=== PATIENT | male | born 1975 | race African-American/Black ===

== ENCOUNTER 2017-02-12 08:26 | Emergency (ER) ==
--- NOTE | 2017-02-12 09:09 | PROVIDER DOCUMENTATION ---
HPI-Cardiac General - General Source: patient - History of Present Illness-Cardiac Quality of Pain: reports: none Severity in ED: mild Onset/Duration: other (3mo) Timing: intermittent Palpitation Quality: fast/pounding heart beat History of arrythmia: reports: none Nitro Today/Relief: reports: no nitro taken today Aspirin Treatment Today: reports: no aspirin today Associated Symptoms: reports: denies symptoms Similar Symptoms Previously?: Yes Recently Seen Here or By Another Healthcare Provider: No - General Chief Complaint: Palpitations Stated Complaint: B/P PROBLEMS Time Seen by Provider: 02/12/17 08:54 Allergies/Adverse Reactions: Patient Allergies Allergy/AdvReac Type Severity Reaction Status Date / Time No Known Allergies Allergy Verified 02/12/17 09:16 - History of Present Illness-Cardiac Nature of Presenting Problem: Presents to er with cc of palpitations x 3 months reports lasting in intervals of 5 minutes. Reports doesn't know how fast his heart rate gets during palpitations and denies sob,n,v,sob,cp,blurry vision. (Yaritza Roy) Review of Systems - Adult - REVIEW OF SYSTEMS - ADULT Constitutional: denies: chills, fever, fatique Eyes: reports: no symptoms reported Ears, Nose, Mouth & Throat: reports: no symptoms reported Cardiovascular: reports: palpitations. denies: chest pain, edema, irregular heart rate, orthopnea Respiratory: reports: no symptoms reported Gastrointestinal: denies: abdominal pain, diarrhea, nausea, vomiting Genitourinary: reports: no symptoms reported Musculoskeletal: reports: no symptoms reported Integumentary: reports: no symptoms reported Neurological: reports: no symptoms reported Psychiatric: reports: no symptoms reported Endocrine: reports: no symptoms reported Hematologic/Lymphatic: reports: no symptoms reported Allergic/Immunologic: reports: no symptoms reported All Other Systems: Reviewed and Negative Past History - Adult - PAST MEDICAL HISTORY-ADULT Review of Records: reports: Nursing Assessment Review Major Childhood Illnesses: reports: denies history Cardiovascular: reports: denies history - PRIOR SURGERIES/PROCEDURES Surgical/Procedure History: reports: other (cyst removal from scalp) - IMMUNIZATION STATUS Childhood Immunizations: See Nurse Assessment Flu Vaccine: See Nurse Assessment - SOCIAL HISTORY Smoking: cigarettes, greater than 1 pack/day Provider spent 3-5 mins advising pt. on dangers of tobacco.: Discussed manners to quit use, and f/u contacts for add'l counseling. Substance Use: alcohol Alcohol Use Frequency: every day Number of drinks per typical drinking period:: 5-10 drinks Physical Exam-General - PHYSICAL EXAM-ADULT Initial Vital Signs Reviewed: Yes - CONSTITUTIONAL General Appearance: appears well, alert, no apparent distress - EYES Eyes: PERRL/EOMI - HEAD, EARS, NOSE, MOUTH & THROAT HENMT: moist mucous membranes, pharynx normal - NECK Neck: full range of motion, supple - RESPIRATORY Respiratory: chest non-tender, lungs clear, normal breath sounds - CARDIOVASCULAR Cardiovascular: regular rate, rhythm, no edema, no gallop, no JVD, no murmur - GASTROINTESTINAL (ABDOMEN) Abdominal Exam: normal bowel sounds, non tender, soft, no organomegaly, no pulsatile mass - MUSCULOSKELETAL Extremity: normal range of motion, non-tender, normal gait - SKIN Integumentary: normal color, normal turgor, warm/dry - NEUROLOGIC Neurologic: grossly normal - PSYCHIATRIC Psych/Mental Status: normal mood/affect, normal thought content, normal thought process, oriented x 3 Progress - EKG 1 Time of EKG reading by physician:: 09:12 EKG Read and Signed by:: Maxime Vallejo EKG Interpretation (*Must complete 3 of following elements*): Abnormal (ST elevation probably due to early repolarization) Rate: 62 Rhythm: nsr [place]: normal QRS: normal - PLAN OF CARE/RESULTS Progress/Plan/Lab Results: Orders Category Date Time Status EKG [EKG] Stat Ther 02/12/17 09:06 Ordered Vital Signs - 24 hr 02/12/17 08:28 Temperature 98.2 F Pulse Rate 74 Respiratory 20 Rate Blood Pressure 149/91 O2 Sat by Pulse 99 Oximetry Pt asked about having a heart scan done MD explained that there were no signs of any heart issues that would be a recommendation to do this kind of testing and that he would need to follow up with his pcp to referr him to a rehabilitation physician to get this kind of testing done. Pt agreed and verbally understood. (Yaritza Roy) Departure - Departure Time of Disposition Order: 09:07 Certified Medical Emergency: Emergent - Departure DIAGNOSIS: Palpitations Disposition: HOME 01 Condition: Stable Additional Instructions: Call the physician referral line below for pcp and have pcp make appt with rehabilitation physician. ED Follow Up Instructions: You have been treated by a care provider in the Emergency Department. These instructions are being provided to you so you can have an understanding of how to care for yourself upon discharge. Upon discharge from the Emergency Department, you are responsible for making arrangements for follow-up care by a physician of your choice. Take all prescribed medications as directed. Return to the Emergency Department immediately for any new or worsening symptoms. You may call the Physician Referral phone number at [phone] to obtain a list of Physicians who are taking new patients. Referrals: None,PCP [Primary Care Provider] - Ruben Juarez MD [STAFF PHYSICIAN] - Attestation - Scribe Verification/Attestation Scribe:: Yaritza Roy Acting as Scribe for:: Maxime Vallejo Scribe documention review:: This chart was documented by a scribe and accurately reflects the service the provider performed and the decisions made by the provider. Physician Attestation
--- NOTE | 2017-02-12 09:23 | EKG Report ---
Test Performed on : 02/12/2017 09:12:09 AM Test Reason : palpitations Blood Pressure : / mmHG Vent. Rate : 062 BPM Atrial Rate : 062 BPM P-R Int : 174 ms QRS Dur : 098 ms QT Int : 414 ms P-R-T Axes : 068 081 042 degrees QTc Int : 420 ms Normal sinus rhythm. ST elevation, probably due to early repolarization Borderline ECG No previous ECGs available Unconfirmed Result
[2017-02-12 09:44] VITALS: BP 145/85
== END 2017-02-12 09:45 | disposition home or self-care (01) ==
LOC: P.ED 08:26
DX: R00.2 Palpitations (principal); R94.31 Abnormal electrocardiogram [ECG] [EKG]; F17.210 Nicotine dependence, cigarettes, uncomplicated; Z71.6 Tobacco abuse counseling
CPT/HCPCS: 93005; 99282

== ENCOUNTER 2017-02-15 01:35 | Emergency (ER) ==
[2017-02-15] MEDS ORDERED: TYLENOL PO ONE (01:37)
[2017-02-15] MEDS ORDERED: M.V.I.-12 10 ML, FOLIC ACID 1 MG, MAGNESIUM SULFATE 1 GM, THIAMINE 100 MG in NS 1,000 ML IV ONE (01:37)
[2017-02-15] MEDS ORDERED: CATAPRES PO ONE (01:38)
[2017-02-15 01:45] LABS: MANUAL DIFF NEEDED? NO
[2017-02-15 01:47] LABS: HEMOGLOBIN 15.4 g/dL (14.0-18.0); LYMPH% 19.1 % (20.5-51.1)
--- NOTE | 2017-02-15 01:49 | PROVIDER DOCUMENTATION ---
HPI-General Adult - History of Present Illness -Gen Adult Nature of Presenting Problems: 41 Y/O M presents to ED with Syncope/ ETOH. Pt c/o of and onset of headaches that began tonight. EMS states that pt said he has a hx of syncopal episodes. Pt was drinking at [facility]. Complains of Dizziness, weakness, and a headaches. States that he had 3 beers, and smoked marijuana this morning. Location of Pain/Injury: reports: head Pain Radiation: reports: no radiation Quality of Pain: reports: pressure Severity: reports: mild, moderate Onset/Duration: reports: just prior to arrival, this evening Timing: reports: still present Context/Activities at Onset: reports: none Associated Symptoms: reports: dizziness, fever/chills, headaches. denies: muscle aches, sinus congestion/drainage, vomiting <Anuradha Menezes - Last Filed: 02/15/17 01:44> - General Source: patient, EMS - History of Present Illness -Gen Adult Nature of Presenting Problems: head ache /drinking 3 beers <Micah Cartagena - Last Filed: 02/16/17 00:20> - General Chief Complaint: Intoxicated Stated Complaint: syncope-- etoh Time Seen by Provider: 02/15/17 01:36 Allergies/Adverse Reactions: Patient Allergies Allergy/AdvReac Type Severity Reaction Status Date / Time No Known Allergies Allergy Unverified 02/15/17 01:32 Home Medications: Home Medication List Medication Instructions Recorded Confirmed Last Taken Type No Home Medications 02/15/17 02/15/17 Unknown History Review of Systems - Adult - REVIEW OF SYSTEMS - ADULT Constitutional: denies: chills, fever Eyes: reports: no symptoms reported Ears, Nose, Mouth & Throat: reports: no symptoms reported Cardiovascular: reports: no symptoms reported Respiratory: reports: no symptoms reported Gastrointestinal: denies: abdominal pain, diarrhea, nausea, vomiting Genitourinary: reports: no symptoms reported Musculoskeletal: reports: no symptoms reported, muscle weakness Integumentary: reports: no symptoms reported Neurological: reports: dizziness/vertigo, headache/migraines, syncope Psychiatric: reports: no symptoms reported Endocrine: reports: no symptoms reported Hematologic/Lymphatic: reports: no symptoms reported Allergic/Immunologic: reports: no symptoms reported All Other Systems: Reviewed and Negative <Anuradha Menezes - Last Filed: 02/15/17 01:44> - REVIEW OF SYSTEMS - ADULT Constitutional: reports: see HPI All Other Systems: Reviewed and Negative <Micah Cartagena - Last Filed: 02/16/17 00:20> Past History - Adult - PAST MEDICAL HISTORY-ADULT Review of Records: reports: Old Records Reviewed, Nursing Assessment Review, Medications Reviewed, Social history reviewed & non-contributory. - SOCIAL HISTORY Substance Use: marijuana Alcohol Use Frequency: every day <RiriAnuradha - Last Filed: 02/15/17 01:44> - PAST MEDICAL HISTORY-ADULT Review of Records: reports: Old Records Reviewed, Nursing Assessment Review, Medications Reviewed, Social history reviewed & non-contributory. Cardiovascular: reports: denies history Respiratory: reports: denies history Gastrointestinal: reports: denies history Genitourinary: reports: denies history Musculoskeletal: reports: chronic pain Psychiatric: reports: anxiety Other Conditions: reports: denies history - PRIOR SURGERIES/PROCEDURES Surgical/Procedure History: reports: reviewed, not pertinent - IMMUNIZATION STATUS Childhood Immunizations: See Nurse Assessment Flu Vaccine: See Nurse Assessment - FAMILY HISTORY Family History: reviewed, not pertinent - SOCIAL HISTORY Smoking: less than 1 pack/day Provider spent 3-5 mins advising pt. on dangers of tobacco.: Discussed manners to quit use, and f/u contacts for add'l counseling. Substance Use: marijuana Alcohol Use Frequency: once a week Living Situation: alone <Micah Cartagena - Last Filed: 02/16/17 00:20> Physical Exam-General - CONSTITUTIONAL General Appearance: appears well, alert, no apparent distress, other (avoiding eye contact, strong ETOH breath). negative: lethargic (pretending to be) - EYES Eyes: PERRL/EOMI, pink conjunctivae, fundi clear, no AV nicking, photophobia ( mild) - HEAD, EARS, NOSE, MOUTH & THROAT HENMT: normocephalic/atraumatic, moist mucous membranes, normal ENT inspection, TMs normal, pharynx normal - NECK Neck: non-tender, full range of motion, supple, normal inspection - RESPIRATORY Respiratory: chest non-tender, lungs clear, normal breath sounds - CARDIOVASCULAR Cardiovascular: normal peripheral pulses, regular rate, rhythm - GASTROINTESTINAL (ABDOMEN) Abdominal Exam: normal bowel sounds, non tender, soft - LYMPHATIC Lymphatic: no adenopathy - MUSCULOSKELETAL Back Exam: normal inspection, no CVA tenderness, no vertebral tenderness Extremity: normal range of motion, non-tender, normal gait - SKIN Integumentary: normal color, normal turgor, warm/dry - PSYCHIATRIC Psych/Mental Status: normal thought content, normal thought process, oriented x 3 <Anuradha Menezes - Last Filed: 02/15/17 01:44> Departure <Anuradha Menezes - Last Filed: 02/15/17 01:44> - Departure Time of Disposition Order: 02:39 Certified Medical Emergency: Emergent <Micah Cartagena - Last Filed: 02/16/17 00:20> - Departure DIAGNOSIS: Marihuana dependence Headache Qualifiers: Headache chronicity pattern: unspecified pattern Intractability: intractable Disposition: HOME 01 Condition: Stable Additional Instructions: ED Follow Up Instructions:take tylenol for headache and continue home meds /// avoid alcohol and drugs You have been treated by a care provider in the Emergency Department. These instructions are being provided to you so you can have an understanding of how to care for yourself upon discharge. Upon discharge from the Emergency Department, you are responsible for making arrangements for follow-up care by a physician of your choice. Take all prescribed medications as directed. Return to the Emergency Department immediately for any new or worsening symptoms. You may call the Physician Referral phone number at [phone] to obtain a list of Physicians who are taking new patients. Referrals: None,PCP [Primary Care Provider] - Instructions: Migraine Headache, [id number], Cannabis Use Disorder, Alcohol Intoxication, [id number] Attestation - Scribe Verification/Attestation Scribe:: Anuradha Menezes Acting as Scribe for:: Micah Cartagena Scribe documention review:: This chart was documented by a scribe and accurately reflects the service the provider performed and the decisions made by the provider. <Anuradha Menezes - Last Filed: 02/15/17 01:44> Physician Attestation
[2017-02-15 02:04] LABS: BASO% 0.2 % (0.0-0.8); EOS# 0.03 X1000 (0.0-0.7); EOS% 0.3 % (0.0-10.0); HEMATOCRIT 44.2 % (42.0-52.0); LYMPH# 1.82 X1000 (1.2-3.4); MCH 34.3 PG (27-31); MCHC 34.8 g/dL (33-37); MCV 98.4 FL (81-99); MONO# 0.81 X1000 (0.11-0.59); MONO% 8.5 % (1.7-9.3); MPV 9.8 FL (7.4-10.4); NEUT% 71.9 % (42.2-75.2); PLT 232 X1000 (130-400); RBC 4.49 XMIL (4.7-6.1)
[2017-02-15 02:17] LABS: AGAP 17; ALKALINE PHOSPHATASE 64 U/L (32-122); BUN 16 mg/dL (8-22); CALCIUM 8.4 mg/dL (8.8-10.2); CHLORIDE 97 mmol/L (98-107); COSMO 276; GOT 30 U/L (10-34); GPT 19 U/L (10-44); POTASSIUM 3.6 mmol/L (3.5-5.1); SODIUM 137 mmol/L (136-145); TCO2 23 mmol/L (25-35); TOTAL BILIRUBIN 0.26 mg/dL (0.20-1.00); TOTAL PROTEIN 6.9 g/dL (6.3-8.3)
[2017-02-15 02:38] LABS: UR AMPHETAMINES QUAL NONE DETECTED (NONE DETECT); UR BARBITUATES QUAL NONE DETECTED (NONE DETECT); UR BENZODIAZEPIN QUAL NONE DETECTED (NONE DETECT); UR CANNABINOIDS QUAL PRESUMPTIVE POSITIVE (NONE DETECT); UR COCAINE QUAL NONE DETECTED (NONE DETECT); UR METHADONE QUAL NONE DETECTED (NONE DETECT); UR OPIATES QUAL NONE DETECTED (NONE DETECT); UR OXYCODONE QUAL NONE DETECTED (NONE DETECT); UR PCP QUAL NONE DETECTED (NONE DETECT)
[2017-02-15 03:31] VITALS: BP 136/75
== END 2017-02-15 03:30 | disposition home or self-care (01) ==
LOC: EDUNIT# → EDBD → ED 01:35
DX: F12.20 Cannabis dependence, uncomplicated (principal); R51 Headache; R55 Syncope and collapse; R42 Dizziness and giddiness; M62.81 Muscle weakness (generalized); G89.29 Other chronic pain; F41.9 Anxiety disorder, unspecified; F17.210 Nicotine dependence, cigarettes, uncomplicated; Z71.6 Tobacco abuse counseling
CPT/HCPCS: 80053; 83735; 85025; 96365; G0480; J3411; J3475; J7030; 80320; 80324; 80345; 80346; 80349; 80353; 80358; 80361; 80365; 83992

== ENCOUNTER 2017-02-19 14:47 | Emergency (ER) ==
--- NOTE | 2017-02-19 17:05 | PROVIDER DOCUMENTATION ---
HPI-General Adult - General Chief Complaint: B/P Problems Stated Complaint: DIZZINESS,WEAKNESS,JEAN BAPTISTE Time Seen by Provider: 02/19/17 16:24 Source: patient, police Allergies/Adverse Reactions: Patient Allergies Allergy/AdvReac Type Severity Reaction Status Date / Time No Known Allergies Allergy Unverified 02/19/17 17:06 Home Medications: Home Medication List Medication Instructions Recorded Confirmed Last Taken Type No Home Medications 02/15/17 02/19/17 Unknown History - History of Present Illness -Gen Adult Nature of Presenting Problems: 41 y/o M with no known medical problems presents from [facility]term after an episode of lightheadedness, palpitations, generalized, weakness, JEAN BAPTISTE that lasted several minutes. According to report from longterm patient's BP was 180/110 at the time of the episode. He is not on any medication for HTN. Patient states he has been under increased stress due to family deaths and being incarcerated. Currently, he denies any symptoms. He was seen at [facility] 02/15/17 for same symptoms and discharged home. Review of Systems - Adult - REVIEW OF SYSTEMS - ADULT Constitutional: reports: no symptoms reported. denies: chills, fever Eyes: reports: no symptoms reported. denies: decreased vision, blurred vision Ears, Nose, Mouth & Throat: reports: no symptoms reported. denies: ear discharge, ear pain Cardiovascular: reports: palpitations. denies: chest pain Respiratory: reports: no symptoms reported. denies: cough, shortness of breath , wheezing Gastrointestinal: reports: no symptoms reported. denies: abdominal pain, nausea , vomiting Genitourinary: reports: no symptoms reported. denies: dysuria Musculoskeletal: reports: no symptoms reported. denies: bone pain, back pain Integumentary: reports: no symptoms reported. denies: itching, rash Neurological: reports: dizziness/vertigo, headache/migraines. denies: loss of balance, numbness, paresthesia, slurred speech Psychiatric: reports: anxiety Endocrine: reports: no symptoms reported Hematologic/Lymphatic: reports: no symptoms reported Allergic/Immunologic: reports: no symptoms reported. denies: allergic rhinitis , asthma All Other Systems: Reviewed and Negative Past History - Adult - PAST MEDICAL HISTORY-ADULT Review of Records: reports: Nursing Assessment Review, Medications Reviewed Major Childhood Illnesses: reports: denies history Cardiovascular: reports: denies history Respiratory: reports: denies history Gastrointestinal: reports: denies history Genitourinary: reports: denies history Musculoskeletal: reports: chronic pain Psychiatric: reports: anxiety Other Conditions: reports: denies history - PRIOR SURGERIES/PROCEDURES Surgical/Procedure History: reports: reviewed, not pertinent - IMMUNIZATION STATUS Childhood Immunizations: See Nurse Assessment Flu Vaccine: See Nurse Assessment - FAMILY HISTORY Family History: reviewed, not pertinent Physical Exam-General - PHYSICAL EXAM-ADULT Initial Vital Signs Reviewed: Yes - CONSTITUTIONAL General Appearance: appears well, alert, no apparent distress - EYES Eyes: PERRL/EOMI, pink conjunctivae - HEAD, EARS, NOSE, MOUTH & THROAT HENMT: normocephalic/atraumatic, moist mucous membranes - NECK Neck: non-tender, full range of motion, supple, normal inspection - RESPIRATORY Respiratory: chest non-tender, lungs clear, normal breath sounds, no pleuratic chest pain, no respiratory distress, no accessory muscle use - CARDIOVASCULAR Cardiovascular: normal peripheral pulses, regular rate, rhythm, no edema, no gallop, no murmur - GASTROINTESTINAL (ABDOMEN) Abdominal Exam: normal bowel sounds, non tender, soft - LYMPHATIC Lymphatic: no adenopathy - MUSCULOSKELETAL Back Exam: normal inspection Extremity: normal gait, normal inspection - SKIN Integumentary: normal color, normal turgor, warm/dry - 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, grossly normal, no motor/sensory deficits - PSYCHIATRIC Psych/Mental Status: normal mood/affect, normal thought content, normal thought process, oriented x 3 Progress - PLAN OF CARE/RESULTS Progress/Plan/Lab Results: Laboratory Tests 02/19/17 02/19/17 17:06 17:06 WBC 10.11 RBC 4.92 Hgb 16.6 Hct 49.0 MCV 99.6 H MCH 33.7 H MCHC 33.9 RDW Std Deviation 13.2 Plt Count 233 MPV 10.2 Immature Gran % (Auto) 0.3 Neut % (Auto) 72.7 Lymph % (Auto) 18.1 L Hart % (Auto) 8.1 Eos % (Auto) 0.6 Baso % (Auto) 0.2 Immature Gran # (Auto) 0.03 Neut # (Auto) 7.35 H Lymph # (Auto) 1.83 Hart # (Auto) 0.82 H Eos # (Auto) 0.06 Baso # (Auto) 0.02 Sodium 135 L Potassium 4.4 Chloride 96 L Carbon Dioxide 26 Anion Gap 13 BUN 10 Creatinine 1.0 Estimated GFR/1.73 m2 > 60 BUN/Creatinine Ratio 10 Glucose 88 Calculated Osmolality 269 Calcium 9.1 Orders Category Date Time Status Finger Stick Blood Sugar (ED) DIRECTED Care 02/19/17 16:10 Active Nursing [[facility]. NRSG Communication Order] DIRECTED Care 02/19/17 16:10 Active Orthostatic Vital Signs NOW Care 02/19/17 16:54 Active BASIC METABOLIC PANEL [CHEM] Stat Lab 02/19/17 17:06 Completed CBC WITH ELECTRONIC DIFF [HEME] Stat Lab 02/19/17 17:06 Completed EKG [EKG] Stat Ther 02/19/17 14:57 Ordered Vital Signs Temp Pulse Pulse Pulse Pulse Resp BP 02/19/17 16:59 68 67 56 L 02/19/17 14:51 98.2 F 64 18 159/98 BP BP BP Pulse Ox 02/19/17 16:59 157/91 144/95 162/80 02/19/17 14:51 100 No Known Allergies Allergy (Unverified 02/19/17 17:06) No Home Medications 02/15/17 Laboratory 02/19/17 02/19/17 17:06 17:06 WBC 10.11 RBC 4.92 Hgb 16.6 Hct 49.0 MCV 99.6 H MCH 33.7 H MCHC 33.9 RDW Std Deviation 13.2 Plt Count 233 MPV 10.2 Immature Gran % (Auto) 0.3 Neut % (Auto) 72.7 Lymph % (Auto) 18.1 L Hart % (Auto) 8.1 Eos % (Auto) 0.6 Baso % (Auto) 0.2 Immature Gran # (Auto) 0.03 Neut # (Auto) 7.35 H Lymph # (Auto) 1.83 Hart # (Auto) 0.82 H Eos # (Auto) 0.06 Baso # (Auto) 0.02 Sodium 135 L Potassium 4.4 Chloride 96 L Carbon Dioxide 26 Anion Gap 13 BUN 10 Creatinine 1.0 Estimated GFR/1.73 m2 > 60 BUN/Creatinine Ratio 10 Glucose 88 Calculated Osmolality 269 Calcium 9.1 - REASSESSMENT Reassessment #1 Time Reassessed: 17:49 (Patient has remained stable throughout ER visit. He has had no reoccurance of symptoms. Will discharge back to care [facility] to follow up with a PCP for recheck of BP and for anxiety. Counseled patient to notify nurse or MD at the longterm for any new sympoms.) Status: unchanged Departure - Departure Time of Disposition Order: 17:47 DIAGNOSIS: Palpitations, Headache, Anxiety, Elevated blood pressure reading without diagnosis of hypertension Disposition: HOME 01 Certified Medical Emergency: Emergent Condition: Good Additional Instructions: Follow up with primary care provider for anxiety and for recheck of blood pressure. ED Follow Up Instructions: You have been treated by a care provider in the Emergency Department. These instructions are being provided to you so you can have an understanding of how to care for yourself upon discharge. Upon discharge from the Emergency Department, you are responsible for making arrangements for follow-up care by a physician of your choice. Take all prescribed medications as directed. Return to the Emergency Department immediately for any new or worsening symptoms. You may call the Physician Referral phone number at [phone] to obtain a list of Physicians who are taking new patients. Referrals: None,PCP [Primary Care Provider] - Instructions: Migraine Headache, [id number] Attestation - Physician/ CONSTANTIN Attestation Patient care was provided by Advanced Practice Provider:: Yes Advanced Practice Provider:: Milena Araiza Advanced Practice Provider documentation review:: The Mid-level provider documentation, treatment plan and medical decision making was reviewed by the physician who agrees with all treatment and medical decision making by the P.
[2017-02-19 17:22] LABS: MANUAL DIFF NEEDED? NO
[2017-02-19 17:25] LABS: BASO% 0.2 % (0.0-0.8); EOS# 0.06 X1000 (0.0-0.7); EOS% 0.6 % (0.0-10.0); HEMOGLOBIN 16.6 g/dL (14.0-18.0); IMM GRAN# 0.03 X1000 (0.0-0.04); IMM GRAN% 0.3 % (0.0-0.5); LYMPH# 1.83 X1000 (1.2-3.4); LYMPH% 18.1 % (20.5-51.1); MCH 33.7 PG (27-31); MCHC 33.9 g/dL (33-37); MCV 99.6 FL (81-99); MONO# 0.82 X1000 (0.11-0.59); MONO% 8.1 % (1.7-9.3); MPV 10.2 FL (7.4-10.4); NEUT% 72.7 % (42.2-75.2); PLT 233 X1000 (130-400); RBC 4.92 XMIL (4.7-6.1)
[2017-02-19 17:41] LABS: AGAP 13; BUN 10 mg/dL (8-22); CALCIUM 9.1 mg/dL (8.8-10.2); CHLORIDE 96 mmol/L (98-107); COSMO 269; POTASSIUM 4.4 mmol/L (3.5-5.1); SODIUM 135 mmol/L (136-145); TCO2 26 mmol/L (25-35)
[2017-02-19 18:29] VITALS: BP 131/92
--- NOTE | 2017-02-20 05:31 | EKG Report ---
Test Performed on : 02/19/2017 2:57:00 PM Test Reason : DIZZINESS Blood Pressure : / mmHG Vent. Rate : 062 BPM Atrial Rate : 062 BPM P-R Int : 178 ms QRS Dur : 110 ms QT Int : 406 ms P-R-T Axes : 070 075 028 degrees QTc Int : 412 ms Normal sinus rhythm. Normal ECG When compared with ECG of 12-FEB-2017 09:12, No significant change was found Unconfirmed Result
== END 2017-02-19 18:29 | disposition home or self-care (01) ==
LOC: ED 14:47
DX: R00.2 Palpitations (principal); R03.0 Elevated blood-pressure reading, without diagnosis of hypertension; R51 Headache; R42 Dizziness and giddiness; G89.29 Other chronic pain; F41.9 Anxiety disorder, unspecified
CPT/HCPCS: 80048; 85025; 93005